=== PATIENT | male | born 1955 | race Caucasian/White ===

== ENCOUNTER 2017-08-24 14:42 | Emergency (ER) | payer SELFPAY ==
[~2017-08-24] VITALS: Ht 172.7 cm; Wt 81.8 kg
[~2017-08-24 14:42] MED LIST: BACTRIM DS 8001 TAB PO; CIPRO 500MG TA500 MG PO; FLOMAX 0.40.4 MG/CAP PO; MULTIPLE VITAMI1 CAP PO; NO HOME MEDICATIONS; PYRIDIUM200 M1 PO; SEPTRA DS 8001 TAB PO; ZOVIRAX800 MG PO
[2017-08-24 14:51] VITALS: TEMP 97.9
[2017-08-24 15:41] LABS: BASO # 0.1 (0.0-0.2); BASO % 1.1 % (0.0-2.0); EOS # 0.2 (0.0-0.7); HEMATOCRIT 47.9 % (42.0-52.0); HEMOGLOBIN 16.9 g/dl (13.5-18.0); LYMPH # 2.1 (1.2-3.4); LYMPH % 27.6 % (20.0-51.0); MEAN CELL VOLUME 95 fl (80.0-100.0); MEAN CORPUSCULAR HEMOGLOBIN 33 pg (27.0-31.0); MEAN CORPUSCULAR HGB CONC 35 g/dl (33.0-37.0); MEAN PLATELET VOLUME 10.7 fl (7.4-10.4); MONO # 1.1 (0.1-0.6); MONO % 14.9 % (1.7-9.3); PLATELET COUNT 161 K/mm3 (130-400); RED BLOOD COUNT 5.07 M/mm3 (4.20-5.60); REDCELL DISTRIBUTION WIDTH-CV 11.4 % (11.5-14.5)
[2017-08-24 15:51] LABS: ALANINE AMINOTRANSFERASE 112 U/L (21-72); ALBUMIN 4.6 gm/dL (3.5-5.0); ALKALINE PHOSPHATASE 74 U/L (50-136); ANION GAP 10 mmol/L (7-16); AST,SGOT 120 U/L (15-37); BILIRUBIN,TOTAL 1.2 mg/dL (0.0-1.0); BLOOD UREA NITROGEN 27 mg/dL (9-20); C-REACTIVE PROTEIN 1.8 mg/dL (0.0-0.9); CALCIUM 9.3 mg/dL (8.4-10.2); CARBON DIOXIDE 22 mmol/L (22-30); CHLORIDE 107 mmol/L (98-107); CREATININE, serum 0.87 mg/dL (0.66-1.25); GLUCOSE 109 mg/dL (74-106); LIPASE 44 U/L (23-300); SODIUM 138 mmol/L (137-145)
[2017-08-24 15:59] LABS: TROPONIN-I < 0.012 ng/mL (0.000-0.034)
[2017-08-24 16:40] LABS: COLLECTION METHOD CLEAN CATCH
[2017-08-24 16:51] LABS: MUCOUS Present /lpf; PH 5 (5-8); SQUAMOUS EPITHELIAL 0-2 /hpf; URINE APPEARANCE Clear; URINE BACTERIA None Seen /hpf; URINE BILIRUBIN Negative (NEGATIVE); URINE BLOOD 1+ (NEGATIVE); URINE COLOR Yellow; URINE GLUCOSE Negative (NEGATIVE); URINE KETONE Negative (NEGATIVE); URINE LEUKOCYTE ESTERASE 2+ (NEGATIVE); URINE NITRATE Negative (NEGATIVE); URINE PROTEIN(semi-quant) Negative (NEGATIVE); URINE UROBILINOGEN Negative (NEGATIVE)
[2017-08-24] MEDS ORDERED: ZOFRAN 4MG T4 MG/TAB PO ×2 (17:49→17:58)
[2017-08-24] MEDS ORDERED: FLOMAX 0.40.4 MG/CAP PO ×2 (17:49→17:58)
[2017-08-24] MEDS ORDERED: OMNICEF 300MG300 MG PO ×2 (17:49→17:58)
[2017-08-24 18:09] VITALS: BP 140/89; PULSE 90
== END 2017-08-24 18:12 | disposition home or self-care (01) ==
LOC: COL.ER 14:42
PROVIDERS: Emergency Medicine
DX: N39.0 Urinary tract infection, site not specified (principal); K40.20 Bilateral inguinal hernia, without obstruction or gangrene, not specified as recurrent; R33.9 Retention of urine, unspecified; F17.210 Nicotine dependence, cigarettes, uncomplicated
CPT/HCPCS: J1170; J2405; J7030; J7050; Q9967

== ENCOUNTER 2018-02-14 09:41 | Emergency (ER) | payer SELFPAY ==
[~2018-02-14] VITALS: Ht 170.2 cm; Wt 77.3 kg
[~2018-02-14 09:41] MED LIST changes: +OMNICEF 300MG300 MG PO; +ZOFRAN 4MG T4 MG/TAB PO
[2018-02-14 09:43] VITALS: TEMP 98
[2018-02-14 10:03] LABS: BASO # 0.1 (0.0-0.2); BASO % 1.6 % (0.0-2.0); EOS # 0.4 (0.0-0.7); EOS % 5.7 % (0-4.0); GRAN # 2.8 (1.4-6.5); GRAN % 39.3 % (42.2-75.2); HEMATOCRIT 51.5 % (42.0-52.0); LYMPH # 2.6 (1.2-3.4); LYMPH % 37.8 % (20.0-51.0); MEAN CELL VOLUME 96 fl (80.0-100.0); MEAN CORPUSCULAR HEMOGLOBIN 34 pg (27.0-31.0); MEAN CORPUSCULAR HGB CONC 35 g/dl (33.0-37.0); MONO % 14.9 % (1.7-9.3); PLATELET COUNT 166 K/mm3 (130-400); RED BLOOD COUNT 5.37 M/mm3 (4.20-5.60); REDCELL DISTRIBUTION WIDTH-CV 12.1 % (11.5-14.5)
[2018-02-14 10:04] LABS: HEMOGLOBIN 18.2 g/dl (13.5-18.0)
[2018-02-14 10:22] LABS: ALANINE AMINOTRANSFERASE 386 U/L (21-72); ALBUMIN 4.5 gm/dL (3.5-5.0); ALCOHOL(ethanol),MEDICAL 152 mg/dL; ALKALINE PHOSPHATASE 86 U/L (50-136); ANION GAP 14 mmol/L (7-16); AST,SGOT 568 U/L (15-37); BLOOD UREA NITROGEN 14 mg/dL (9-20); CALCIUM 9.4 mg/dL (8.4-10.2); CARBON DIOXIDE 24 mmol/L (22-30); CHLORIDE 105 mmol/L (98-107); CREATININE, serum 0.82 mg/dL (0.66-1.25); GLUCOSE 100 mg/dL (74-106); MAGNESIUM 1.8 mg/dL (1.6-2.3); PHOSPHOROUS 2.6 mg/dL (2.5-4.5); POTASSIUM 4.1 mmol/L (3.4-5.0); SODIUM 143 mmol/L (137-145); TOTAL PROTEIN 8.6 gm/dL (6.4-8.2)
[2018-02-14 10:24] LABS: C-REACTIVE PROTEIN < 0.5 mg/dL (0.0-0.9)
[2018-02-14 10:39] LABS: TROPONIN-I < 0.012 ng/mL (0.000-0.034)
[2018-02-14 11:09] LABS: COLLECTION METHOD CLEAN CATCH
[2018-02-14 11:22] LABS: MUCOUS Present /lpf; PH 6 (5-8); SQUAMOUS EPITHELIAL None Seen /hpf; URINE APPEARANCE Clear; URINE BACTERIA None Seen /hpf; URINE BILIRUBIN Negative (NEGATIVE); URINE BLOOD Negative (NEGATIVE); URINE COLOR Yellow; URINE GLUCOSE Negative (NEGATIVE); URINE KETONE Negative (NEGATIVE); URINE LEUKOCYTE ESTERASE Negative (NEGATIVE); URINE NITRATE Negative (NEGATIVE); URINE PROTEIN(semi-quant) Negative (NEGATIVE); URINE UROBILINOGEN Negative (NEGATIVE)
[2018-02-14] MEDS ORDERED: ATIVAN 1MG T1 MG/TAB PO (13:03)
[2018-02-14] MEDS ORDERED: FLOMAX 0.40.4 MG/CAP PO (13:03)
[2018-02-14 13:47] VITALS: BP 149/99; PULSE 80
== END 2018-02-14 13:48 | disposition home or self-care (01) ==
LOC: COL.ER 09:41
PROVIDERS: Emergency Medicine
DX: F10.239 Alcohol dependence with withdrawal, unspecified (principal); R33.9 Retention of urine, unspecified; N40.0 Benign prostatic hyperplasia without lower urinary tract symptoms; F17.210 Nicotine dependence, cigarettes, uncomplicated; Y90.6 Blood alcohol level of 120-199 mg/100 ml
CPT/HCPCS: J2060; J2405; J7030

== ENCOUNTER → 2018-08-30 | Outpatient (CLI) | payer OTHER ==
[~2018-08-30] MED LIST changes: +ATIVAN 1MG T1 MG/TAB PO
== END ==
LOC: COL.RAD 07:22
DX: N50.89 Other specified disorders of the male genital organs (principal); K40.20 Bilateral inguinal hernia, without obstruction or gangrene, not specified as recurrent

== ENCOUNTER 2018-10-18 10:13 | Day surgery (SDC) | payer OTHER ==
[~2018-10-18] VITALS: Ht 170.2 cm; Wt 77.9 kg
[2018-10-18 10:58] VITALS: BP 161/94; PULSE 71; TEMP 97.4
[2018-10-18] MEDS ORDERED: HCTZ12.5TAB PO (11:13)
[2018-10-18] MEDS ORDERED: COLACE 100100 MG/CAP PO (16:32)
[2018-10-18] MEDS ORDERED: MOTRIN 600600 MG/TAB PO (16:32)
[2018-10-18] MEDS ORDERED: NORCO 325 MG-51 TAB PO (16:32)
[2018-10-18 17:00] VITALS: BP 142/79; PULSE 78; TEMP 98.6
--- NOTE | 2018-10-18 17:00 | NUR ---
Patient arrives to [facility] bay [address] via cart, accompanied by ASSOCIATE ACCOUNT DIRECTOR [place]. He is sitting up in bed, alert and oriented. He denies any pain or nausea. Monitoring applied - VSS and WNL on room air. Patient has 4 abdominal incisions that are clean, dry, intact. His abdomen is soft, tender. Offered and receives water and crackers to eat. Family brought to the bedside. Will continue to monitor.
[2018-10-18 17:15] VITALS: BP 156/90; PULSE 78
--- NOTE | 2018-10-18 17:15 | NUR ---
Patient requests to use restroom. Escorted to restroom with standby assist. Patient attempts to void and is unable. Returns to room with steady gait. Monitoring re-applied. Dr. Jalloh called in OR and notified of patient's inability to void. Per Dr. Jalloh, patient may discharge to home without voiding as long as he understands he will have to return to the ER if he is unable to void by 2300. Discussed instructions on returning to ER if unable to void by 2300 with patient and his family and they verbalize understanding.
[2018-10-18 17:30] VITALS: BP 145/86; PULSE 75
--- NOTE | 2018-10-18 17:30 | NUR ---
VSS and WNL on room air. Patient tolerating PO. Denies any pain, nausea, or need.
[2018-10-18 17:45] VITALS: BP 159/91; PULSE 79
--- NOTE | 2018-10-18 17:45 | NUR ---
VSS and WNL on room air. Patient states that his pain is starting to mildly increase . Offered and receives a PO [place].
--- NOTE | 2018-10-18 18:20 | NUR ---
Patient attempted to void once more - unable to void. Reinforced patient teaching that he will need to return tonight to the ER if he is unable to void by 2300. and patient verbalize understanding. Patient has met all other discharge criteria. PIV removed with catheter intact and hemostasis achieved. Discharge instructions discussed, denies any questions, and verbalizes understanding. Given paper prescriptions for Motrin, Colace, and [place]. Follow-up appointment made and patient notified of date/time (11/01/18 at 9:15am). Patient changes to clothing independently. Escorted to exit via wheelchair. Discharged to home with ride in private vehicle at 1820.
== END 2018-10-18 18:20 | disposition home or self-care (01) ==
LOC: SDCO 10:13
DX: K40.20 Bilateral inguinal hernia, without obstruction or gangrene, not specified as recurrent (principal); K42.9 Umbilical hernia without obstruction or gangrene; I10 Essential (primary) hypertension; F17.210 Nicotine dependence, cigarettes, uncomplicated; Z88.1 Allergy status to other antibiotic agents; M62.08 Separation of muscle (nontraumatic), other site
CPT/HCPCS: A4314; C1781; J0360; J0690; J1100; J1885; J2405; J2704; J2765; J3010; J7120

== ENCOUNTER 2020-09-03 10:29 | Day surgery (SDC) | payer BC ==
[~2020-09-03] VITALS: Ht 172.7 cm; Wt 76.0 kg
[~2020-09-03 10:29] MED LIST changes: +COLACE 100100 MG/CAP PO; +HCTZ12.5TAB PO; +MOTRIN 600600 MG/TAB PO; +NORCO 325 MG-51 TAB PO
[2020-09-03 11:12] VITALS: BP 179/97; PULSE 67; TEMP 97.8
--- NOTE | 2020-09-03 11:27 | NUR ---
TO RM 8 AT 1039- CALL LIGHT IN REACH
[2020-09-03 13:56] VITALS: BP 146/75; PULSE 79; TEMP 98.2
--- NOTE | 2020-09-03 13:56 | NUR ---
TO RM 8 PER CART FROM OR. ALERT ORIENTED X3, TALKING WITH STAFF. CLEAR DRESSING OVER INCISION. DENIES PAIN OR DISCOMFORT. DENIES NAUSEA OR VOMITING.
[2020-09-03] MEDS ORDERED: MOTRIN 600600 MG/TAB PO (14:11)
[2020-09-03] MEDS ORDERED: NORCO 325 MG-51 TAB PO (14:12)
[2020-09-03 14:15] VITALS: BP 140/86; PULSE 61
--- NOTE | 2020-09-03 14:15 | NUR ---
RECEIVED COFFEE AND MUFFIN.
[2020-09-03 14:30] VITALS: BP 154/80; PULSE 58
--- NOTE | 2020-09-03 14:30 | NUR ---
ATE 100% AND TOLERATED WELL. OFFERED PAIN MED FOR ANY PAIN. PATIENT CONTINUES TO DENY PAIN. AMBULATED TO BATHROOM. VOIDED AND AMBULATED BACK TO .
--- NOTE | 2020-09-03 14:40 | NUR ---
RECEIVED DISCHARGE INSTRUCTIONS AND VERBALIZED UNDERSTANDING. DISCONTINUED IV AND INT- CATHETER INTACT. PATIENT IS GETTING DRESSED.
--- NOTE | 2020-09-03 15:09 | NUR ---
DISCHARGED PER WC BY NURSING STAFF TO PRIVATE CAR IN CARE OF DAUGHTER KYUNG.
== END 2020-09-03 15:11 | disposition home or self-care (01) ==
LOC: SDCO 10:29
DX: K40.91 Unilateral inguinal hernia, without obstruction or gangrene, recurrent (principal); I10 Essential (primary) hypertension; F17.210 Nicotine dependence, cigarettes, uncomplicated; Z88.1 Allergy status to other antibiotic agents; Z20.822 Contact with and (suspected) exposure to COVID-19; G89.18 Other acute postprocedural pain
CPT/HCPCS: C1781; J0690; J2250; J2704; J2795; J3010; J7120

== ENCOUNTER 2020-09-26 10:33 | Emergency (ER) | payer BC, MEDICARE ==
[~2020-09-26] VITALS: Ht 172.7 cm; Wt 75.0 kg
[2020-09-26 10:36] VITALS: TEMP 98
[2020-09-26 10:56] LABS: COLLECTION METHOD CATHETER
[2020-09-26 11:21] LABS: PH 7 (5-8); SQUAMOUS EPITHELIAL None Seen /hpf; URINE APPEARANCE Cloudy; URINE BACTERIA None Seen /hpf; URINE BILIRUBIN Negative (NEGATIVE); URINE BLOOD 1+ (NEGATIVE); URINE COLOR Yellow; URINE GLUCOSE Negative (NEGATIVE); URINE KETONE Negative (NEGATIVE); URINE LEUKOCYTE ESTERASE 3+ (NEGATIVE); URINE NITRATE Negative (NEGATIVE); URINE PROTEIN(semi-quant) Negative (NEGATIVE); URINE RBC 20-50 /hpf; URINE UROBILINOGEN Negative (NEGATIVE)
[2020-09-26] MEDS ORDERED: BACTRIM DS 8001 TAB PO (12:18)
[2020-09-26 12:25] VITALS: BP 132/78; PULSE 70
== END 2020-09-26 12:23 | disposition home or self-care (01) ==
LOC: COL.ER 10:33
PROVIDERS: Nurse Practitioner Primary Care
DX: N39.0 Urinary tract infection, site not specified (principal); I10 Essential (primary) hypertension; F17.210 Nicotine dependence, cigarettes, uncomplicated; Z88.1 Allergy status to other antibiotic agents

== ENCOUNTER 2020-10-19 18:25 | Emergency (ER) | payer BC, MEDICARE | END 2020-10-19 18:55 | disposition left against medical advice (07) | LOC: COL.ER 18:25 | DX: R69 Illness, unspecified (principal) ==

== ENCOUNTER → 2020-12-17 | Outpatient (CLI) | payer BC, MEDICARE ==
[2020-12-17 10:31] LABS: BASO # 0.1 (0.0-0.2); BASO % 1.4 % (0.0-2.0); EOS # 0.3 (0.0-0.7); EOS % 5.5 % (0-4.0); GRAN # 3.2 (1.4-6.5); GRAN % 53.9 % (42.2-75.2); HEMOGLOBIN 15.7 g/dl (13.5-18.0); LYMPH # 1.4 (1.2-3.4); LYMPH % 24.3 % (20.0-51.0); MEAN CELL VOLUME 100 fl (80.0-100.0); MEAN CORPUSCULAR HEMOGLOBIN 34 pg (27.0-31.0); MEAN CORPUSCULAR HGB CONC 34 g/dl (33.0-37.0); MEAN PLATELET VOLUME 10.7 fl (7.4-10.4); MONO # 0.9 (0.1-0.6); MONO % 14.6 % (1.7-9.3); PLATELET COUNT 138 K/mm3 (130-400); RED BLOOD COUNT 4.58 M/mm3 (4.20-5.60); REDCELL DISTRIBUTION WIDTH-CV 11.9 % (11.5-14.5)
[2020-12-17 10:42] LABS: ALANINE AMINOTRANSFERASE 239 U/L (4-49); ALBUMIN 4.4 gm/dL (3.5-5.0); ALKALINE PHOSPHATASE 76 U/L (50-136); ANION GAP 6 mmol/L (7-16); AST,SGOT 346 U/L (15-37); BILIRUBIN,TOTAL 1.4 mg/dL (0.0-1.0); BLOOD UREA NITROGEN 16 mg/dL (9-20); CALCIUM 9.3 mg/dL (8.4-10.2); CARBON DIOXIDE 29 mmol/L (22-30); CHLORIDE 104 mmol/L (98-107); CREATININE, serum 0.68 (0.66-1.25); GLUCOSE 104 mg/dL (74-106); SODIUM 140 mmol/L (137-145); TOTAL PROTEIN 8.5 gm/dL (6.4-8.2); URIC ACID 6.8 mg/dL (3.5-8.5)
[2020-12-17 10:55] LABS: TROPONIN-I < 0.012 ng/mL (0.000-0.035)
[2020-12-17 11:12] LABS: TSH w REFLEX 0.753 uIU/mL (0.465-4.680)
[2020-12-17 23:18] LABS: HEPATITIS B SURFACE ANTIGEN Negative (Negative)
[2020-12-18 00:13] LABS: HEPATITIS B SURFACE ANTIBODY 7.6 (())
== END ==
LOC: COL.LAB 08:53
PROVIDERS: Registered Nurse
DX: Z13.9 Encounter for screening, unspecified (principal); Z11.59 Encounter for screening for other viral diseases; F10.10 Alcohol abuse, uncomplicated; I10 Essential (primary) hypertension; M79.671 Pain in right foot; R06.02 Shortness of breath; R07.89 Other chest pain; Z79.899 Other long term (current) drug therapy
CPT/HCPCS: 87522

== ENCOUNTER → 2020-12-18 | Outpatient (CLI) | payer BC, MEDICARE | LOC: COL.RAD 10:03 | DX: R91.1 Solitary pulmonary nodule (principal); J43.9 Emphysema, unspecified; R79.1 Abnormal coagulation profile | CPT/HCPCS: Q9967 ==

== ENCOUNTER → 2021-01-06 | Outpatient (CLI) | payer BC, MEDICARE | LOC: COL.RAD 10:59 | DX: K76.0 Fatty (change of) liver, not elsewhere classified (principal); K86.89 Other specified diseases of pancreas; B19.20 Unspecified viral hepatitis C without hepatic coma; F10.10 Alcohol abuse, uncomplicated ==

== ENCOUNTER → 2021-01-14 | Outpatient (CLI) | payer BC, MEDICARE | LOC: COL.VAS 13:30 | DX: R79.1 Abnormal coagulation profile (principal) ==

== ENCOUNTER 2021-01-17 17:48 | Emergency (ER) | payer BC, MEDICARE ==
[~2021-01-17] VITALS: Ht 175.3 cm; Wt 74.1 kg
[2021-01-17 17:50] VITALS: PULSE 89; TEMP 97.9
[2021-01-17 17:51] VITALS: BP 152/98
[2021-01-17 18:22] LABS: BASO # 0.1 (0.0-0.2); EOS # 0.5 (0.0-0.7); EOS % 6.5 % (0-4.0); GRAN # 2.1 (1.4-6.5); GRAN % 28.9 % (42.2-75.2); HEMATOCRIT 38.8 % (42.0-52.0); HEMOGLOBIN 13.7 g/dl (13.5-18.0); LYMPH # 3.8 (1.2-3.4); LYMPH % 52.4 % (20.0-51.0); MEAN CELL VOLUME 99 fl (80.0-100.0); MEAN CORPUSCULAR HEMOGLOBIN 35 pg (27.0-31.0); MEAN CORPUSCULAR HGB CONC 35 g/dl (33.0-37.0); MEAN PLATELET VOLUME 10.7 fl (7.4-10.4); MONO # 0.8 (0.1-0.6); MONO % 10.9 % (1.7-9.3); PLATELET COUNT 117 K/mm3 (130-400); RED BLOOD COUNT 3.94 M/mm3 (4.20-5.60); REDCELL DISTRIBUTION WIDTH-CV 11.9 % (11.5-14.5)
[2021-01-17 18:24] LABS: INR 1.1 (0.8-3.0); PROTHROMBIN TIME 12.5 SECONDS (9.7-12.8)
[2021-01-17 18:25] LABS: ALANINE AMINOTRANSFERASE 141 U/L (4-49); ALBUMIN 3.2 gm/dL (3.5-5.0); ALCOHOL(ethanol),MEDICAL 260 mg/dL; ALKALINE PHOSPHATASE 58 U/L (50-136); ANION GAP 7 mmol/L (7-16); AST,SGOT 182 U/L (15-37); BILIRUBIN,TOTAL 0.3 mg/dL (0.0-1.0); BLOOD UREA NITROGEN 15 mg/dL (9-20); CALCIUM 6.7 mg/dL (8.4-10.2); CARBON DIOXIDE 21 mmol/L (22-30); CHLORIDE 116 mmol/L (98-107); CREATININE, serum 0.61 (0.66-1.25); GLUCOSE 72 mg/dL (74-106); LIPASE 88 U/L (23-300); SODIUM 144 mmol/L (137-145); TOTAL PROTEIN 6.3 gm/dL (6.4-8.2)
[2021-01-17 18:46] LABS: TROPONIN-I < 0.012 ng/mL (0.000-0.035)
[2021-01-17 18:50] LABS: COLLECTION METHOD CLEAN CATCH
[2021-01-17 18:56] LABS: PH 6 (5-8); SQUAMOUS EPITHELIAL None Seen /hpf; URINE APPEARANCE Clear; URINE BACTERIA None Seen /hpf; URINE BILIRUBIN Negative (NEGATIVE); URINE BLOOD Negative (NEGATIVE); URINE COLOR Yellow; URINE GLUCOSE Negative (NEGATIVE); URINE KETONE Negative (NEGATIVE); URINE LEUKOCYTE ESTERASE Negative (NEGATIVE); URINE NITRATE Negative (NEGATIVE); URINE PROTEIN(semi-quant) Negative (NEGATIVE); URINE RBC 0-2 /hpf; URINE UROBILINOGEN Negative (NEGATIVE)
== END 2021-01-17 19:15 | disposition left against medical advice (07) ==
LOC: COL.ER 17:48
PROVIDERS: Nurse Practitioner Primary Care
DX: F10.229 Alcohol dependence with intoxication, unspecified (principal); E87.6 Hypokalemia; I10 Essential (primary) hypertension; Z79.899 Other long term (current) drug therapy
CPT/HCPCS: J7030

== ENCOUNTER → 2021-01-25 | Outpatient (CLI) | payer BC, MEDICARE ==
[2021-01-25 12:17] LABS: IRON,SERUM 208 ug/dL (35-150); TOTAL IRON BINDING CAPACITY 363 ug/dL (261-462)
[2021-01-25 23:04] LABS: HEPATITIS A ANTIBODY-IGM Negative (Negative)
[2021-01-26 04:29] LABS: CERULOPLASMIN 34 mg/dL (20-60)
[2021-01-28 11:19] LABS: ANTISMOOTH MUSCLE ANTIBODY Negative (Negative)
== END ==
LOC: COL.LAB 09:42
DX: R74.8 Abnormal levels of other serum enzymes (principal)

== ENCOUNTER 2021-02-01 16:41 | Emergency (ER) | payer BC, MEDICARE ==
[~2021-02-01] VITALS: Ht 170.2 cm; Wt 75.0 kg
[2021-02-01 17:11] VITALS: BP 109/80; PULSE 84
== END 2021-02-01 18:15 | disposition left against medical advice (07) ==
LOC: COL.ER 16:41
DX: R45.850 Homicidal ideations (principal); I10 Essential (primary) hypertension; Z86.79 Personal history of other diseases of the circulatory system; Z79.899 Other long term (current) drug therapy

== ENCOUNTER 2021-05-03 19:57 | Emergency (ER) | payer MEDICARE ==
[~2021-05-03] VITALS: Ht 172.7 cm; Wt 70.5 kg
[2021-05-03 21:41] LABS: BASO # 0.1 (0.0-0.2); BASO % 1.4 % (0.0-2.0); EOS # 0.2 (0.0-0.7); EOS % 2.2 % (0-4.0); GRAN # 3.2 (1.4-6.5); GRAN % 36.7 % (42.2-75.2); HEMATOCRIT 45.2 % (42.0-52.0); LYMPH % 45.7 % (20.0-51.0); MEAN CELL VOLUME 96 fl (80.0-100.0); MEAN CORPUSCULAR HEMOGLOBIN 34 pg (27.0-31.0); MEAN CORPUSCULAR HGB CONC 35 g/dl (33.0-37.0); MEAN PLATELET VOLUME 10.8 fl (7.4-10.4); MONO # 1.2 (0.1-0.6); MONO % 13.9 % (1.7-9.3); PLATELET COUNT 187 K/mm3 (130-400); RED BLOOD COUNT 4.71 M/mm3 (4.20-5.60); REDCELL DISTRIBUTION WIDTH-CV 11.7 % (11.5-14.5)
[2021-05-03 22:08] LABS: ALANINE AMINOTRANSFERASE 33 U/L (0-55); ALBUMIN 4.4 gm/dL (3.4-4.8); ALCOHOL(ethanol),MEDICAL 276 mg/dL (0-10); ALKALINE PHOSPHATASE 54 U/L (0-750); ANION GAP 18 mmol/L (7-16); AST,SGOT 69 U/L (5-34); BILIRUBIN,TOTAL 0.6 mg/dL (0.2-1.2); BLOOD UREA NITROGEN 25 mg/dL (8-26); CALCIUM 9.3 mg/dL (8.4-10.2); CARBON DIOXIDE 20 mmol/L (23-31); CHLORIDE 101 mmol/L (98-107); CREATININE, serum 1.05 mg/dL (0.72-1.25); GLUCOSE 79 mg/dL (70-99); POTASSIUM 3.9 mmol/L (3.5-4.5); SODIUM 139 mmol/L (136-145); TOTAL PROTEIN 8.6 gm/dL (6.2-8.1)
[2021-05-03 22:17] LABS: SALICYLATE < 5.0 mg/dL (15.0-30.0)
[2021-05-04 01:34] LABS: COLLECTION METHOD CLEAN CATCH
[2021-05-04 01:39] LABS: MUCOUS Present /lpf; PH 5 (5-8); SQUAMOUS EPITHELIAL 0-2 /hpf; URINE APPEARANCE Clear; URINE BACTERIA None Seen /hpf; URINE BILIRUBIN Negative (NEGATIVE); URINE BLOOD 1+ (NEGATIVE); URINE COLOR Yellow; URINE GLUCOSE Negative (NEGATIVE); URINE KETONE Trace (NEGATIVE); URINE LEUKOCYTE ESTERASE Negative (NEGATIVE); URINE NITRATE Negative (NEGATIVE); URINE PROTEIN(semi-quant) 1+ (NEGATIVE); URINE UROBILINOGEN Negative (NEGATIVE)
[2021-05-04 01:47] LABS: TRICYCLIC ANTIDEPRESS URINE NEGATIVE
[2021-05-04 06:23] VITALS: BP 138/84; TEMP 98.2
[2021-05-04 09:10] VITALS: PULSE 98
--- NOTE | 2021-05-06 15:52 | NUR ---
Patient called stating that he was screened yesterday by "someone" how offered to send him to a place in [place], however he couldn't remember the name of it. I advised the patient that he was screened by [facility] and provided phone number to facility to the patient. This drug abuse social worker contacted [facility] and notifed them of the conversation i had with the patient.
== END 2021-05-04 09:10 | disposition home or self-care (01) ==
LOC: COL.ER 19:57
PROVIDERS: Physician Assistant
DX: R45.851 Suicidal ideations (principal); F10.20 Alcohol dependence, uncomplicated; F17.210 Nicotine dependence, cigarettes, uncomplicated; Y90.8 Blood alcohol level of 240 mg/100 ml or more; Z20.822 Contact with and (suspected) exposure to COVID-19

== ENCOUNTER 2021-05-09 13:58 | Emergency (ER) | payer MEDICARE ==
[~2021-05-09] VITALS: Ht 170.2 cm; Wt 75.0 kg
[2021-05-09 14:08] VITALS: TEMP 97.4
[2021-05-09 14:24] LABS: COLLECTION METHOD CLEAN CATCH
[2021-05-09 14:31] LABS: PH 7 (5-8); SQUAMOUS EPITHELIAL 0-2 /hpf; URINE APPEARANCE Clear; URINE BACTERIA None Seen /hpf; URINE BILIRUBIN Negative (NEGATIVE); URINE BLOOD Negative (NEGATIVE); URINE COLOR Yellow; URINE GLUCOSE Negative (NEGATIVE); URINE KETONE Negative (NEGATIVE); URINE LEUKOCYTE ESTERASE Negative (NEGATIVE); URINE NITRATE Negative (NEGATIVE); URINE PROTEIN(semi-quant) Negative (NEGATIVE); URINE RBC None Seen /hpf; URINE UROBILINOGEN Negative (NEGATIVE)
[2021-05-09 15:01] VITALS: BP 135/95; PULSE 70
== END 2021-05-09 15:04 | disposition home or self-care (01) ==
LOC: COL.ER 13:58
PROVIDERS: Family Medicine
DX: R35.0 Frequency of micturition (principal); F17.200 Nicotine dependence, unspecified, uncomplicated; Z87.440 Personal history of urinary (tract) infections

== ENCOUNTER 2021-10-08 09:17 | Emergency (ER) | payer MEDICARE ==
[~2021-10-08] VITALS: Ht 170.2 cm; Wt 68.2 kg
[2021-10-08 09:19] VITALS: BP 141/117; TEMP 99.2
[2021-10-08 10:50] VITALS: PULSE 80
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
== END 2021-10-08 10:50 | disposition home or self-care (01) ==
LOC: COL.ER 09:17
DX: F10.129 Alcohol abuse with intoxication, unspecified (principal); S00.83XA Contusion of other part of head, initial encounter; F17.210 Nicotine dependence, cigarettes, uncomplicated; W01.198A Fall on same level from slipping, tripping and stumbling with subsequent striking against other object, initial encounter

== ENCOUNTER → 2022-03-29 | Outpatient (CLI) | payer MEDICARE, MEDICAID | LOC: COL.RAD 14:51 | DX: R06.02 Shortness of breath (principal) ==

== ENCOUNTER 2024-03-31 15:11 | Emergency (ER) | payer MEDICARE, MEDICAID ==
[~2024-03-31] VITALS: Ht 170.2 cm; Wt 76.1 kg
[~2024-03-31 15:11] MED LIST changes: +CEPHALEXIN500 M1 PO
[2024-03-31 15:21] VITALS: TEMP 98.3
[2024-03-31] MEDS ORDERED: Folic Acid 1 MG,Thiamine 200 MG in NS 1,000 ML IV ONE (16:15)
[2024-03-31 16:43] LABS: BASO # 0.1 K/mm3 (0.0-0.2); BASO % 1.1 % (0.0-2.0); EOS # 0.3 K/mm3 (0.0-0.7); EOS % 4.7 % (0.0-4.0); GRAN # 2.5 K/mm3 (1.4-6.5); GRAN % 47.8 % (42.2-75.2); HEMATOCRIT 57.7 % (42.0-52.0); LYMPH # 1.9 K/mm3 (1.2-3.4); LYMPH % 35.6 % (20.0-51.0); MEAN CELL VOLUME 102 fl (80.0-100.0); MEAN CORPUSCULAR HEMOGLOBIN 35 pg (27-31); MEAN CORPUSCULAR HGB CONC 35 g/dl (33.0-37.0); MEAN PLATELET VOLUME 10.5 fl (7.4-10.4); MONO # 0.5 K/mm3 (0.1-0.6); MONO % 9.9 % (1.7-9.3); PLATELET COUNT 145 K/mm3 (130-400); RED BLOOD COUNT 5.67 M/mm3 (4.20-5.60); REDCELL DISTRIBUTION WIDTH-CV 12.8 % (11.5-14.5)
[2024-03-31 17:02] LABS: ALBUMIN 4.6 g/dL (3.4-4.8); BILIRUBIN,TOTAL 0.7 mg/dL (0.2-1.2); CALCIUM 9.9 mg/dL (8.4-10.2); CREATININE, serum 0.95 mg/dL (0.72-1.25); POTASSIUM 4.1 mEq/L (3.5-4.5); TOTAL PROTEIN 9.7 g/dl (6.2-8.1)
[2024-03-31] MEDS ORDERED: LORazepam 2 MG/ML 1 ML VIAL IV ONE (17:30)
[2024-03-31 17:51] LABS: COLLECTION METHOD CLEAN CATCH
[2024-03-31 17:59] LABS: PH 5.5 (5.0-8.5); URINE APPEARANCE CLEAR (CLEAR/HAZY); URINE BLOOD NEGATIVE (NEGATIVE); URINE COLOR YELLOW (YELLOW); URINE GLUCOSE NEGATIVE (NEGATIVE); URINE KETONE TRACE (NEGATIVE); URINE NITRATE NEGATIVE (NEGATIVE); URINE PROTEIN(semi-quant) 1+ (NEGATIVE); URINE UROBILINOGEN 0.2 E.U/dL (0.2-1.0)
[2024-03-31 18:06] LABS: TRICYCLIC ANTIDEPRESS URINE NEGATIVE (NEGATIVE)
[2024-03-31] MEDS ORDERED: LIBRIUM 25M25 MG/CAP PO (22:05)
[2024-03-31] MEDS ORDERED: Home LORazepam 0.5 MG #3 TAB/PACK PO PRN (22:15)
[2024-03-31 22:17] VITALS: BP 146/94; PULSE 97
== END 2024-03-31 22:17 | disposition home or self-care (01) ==
LOC: COL.ER 15:11
PROVIDERS: Emergency Medicine
DX: F10.239 Alcohol dependence with withdrawal, unspecified (principal); Y90.7 Blood alcohol level of 200-239 mg/100 ml
CPT/HCPCS: J2060; J3411; J7030

== ENCOUNTER 2024-05-21 19:15 | Emergency (ER) | payer MEDICARE, MEDICAID ==
[~2024-05-21] VITALS: Ht 170.2 cm; Wt 77.3 kg
[~2024-05-21 19:15] MED LIST changes: +LIBRIUM 25M25 MG/CAP PO
[2024-05-21 19:23] VITALS: TEMP 98.3
[2024-05-21 19:37] LABS: COLLECTION METHOD CLEAN CATCH
[2024-05-21 19:45] LABS: URINE APPEARANCE TURBID (CLEAR/HAZY); URINE BLOOD TRACE (NEGATIVE); URINE COLOR YELLOW (YELLOW); URINE GLUCOSE NEGATIVE (NEGATIVE); URINE KETONE TRACE (NEGATIVE); URINE NITRATE POSITIVE (NEGATIVE); URINE PROTEIN(semi-quant) 2+ (NEGATIVE)
[2024-05-21] MEDS ORDERED: Sulfamethoxazole/Trimethoprim 400-80 MG TAB PO ONE (20:30)
[2024-05-21] MEDS ORDERED: Sulfamethoxazole/Trimethoprim 800-160 MG TAB PO ONE (21:00)
[2024-05-21 21:06] VITALS: PULSE 91
== END 2024-05-21 21:15 | disposition home or self-care (01) ==
LOC: COL.ER 19:15
PROVIDERS: Family Medicine
DX: N41.0 Acute prostatitis (principal); F17.200 Nicotine dependence, unspecified, uncomplicated

== ENCOUNTER 2024-05-25 14:29 | Emergency (ER) | payer MEDICARE, MEDICAID ==
[~2024-05-25] VITALS: Ht 170.2 cm; Wt 77.3 kg
[2024-05-25 14:48] VITALS: BP 158/98; TEMP 98
[2024-05-25 15:26] LABS: COLLECTION METHOD CLEAN CATCH
[2024-05-25 15:36] LABS: PH 6.5 (5.0-8.5); URINE APPEARANCE CLEAR (CLEAR/HAZY); URINE BLOOD NEGATIVE (NEGATIVE); URINE COLOR YELLOW (YELLOW); URINE GLUCOSE NEGATIVE (NEGATIVE); URINE KETONE NEGATIVE (NEGATIVE); URINE NITRATE NEGATIVE (NEGATIVE); URINE PROTEIN(semi-quant) NEGATIVE (NEGATIVE)
[2024-05-25 16:00] VITALS: PULSE 76
== END 2024-05-25 16:32 | disposition home or self-care (01) ==
LOC: COL.ER 14:29
PROVIDERS: Emergency Medicine
DX: R19.7 Diarrhea, unspecified (principal); F17.200 Nicotine dependence, unspecified, uncomplicated; Z87.438 Personal history of other diseases of male genital organs